=== PATIENT | male | born 1950 | race Two or more races ===

== ENCOUNTER 2024-12-26 07:09 | Day surgery (SDC) | payer OTHER ==
[2024-12-26] MEDS ORDERED: MIDAZOLAM HCL 2 MG/2 ML VIAL IV ONE (11:00)
[2024-12-26] MEDS ORDERED: fentaNYL CITRATE 50 MCG/ML AMPUL IV PUSH ONE (11:00)
[2024-12-26] MEDS ORDERED: DIPHENHYDRAMINE HCL 50 MG/ML VIAL 1ML IV ONE (11:00)
== END 2024-12-26 12:00 | disposition home or self-care (01) ==
LOC: AMB-ENDOS 07:09
PROVIDERS: ATTEND Colon & Rectal Surgery
DX: D12.8 Benign neoplasm of rectum (principal); K57.30 Diverticulosis of large intestine without perforation or abscess without bleeding